=== PATIENT | male | born 1995 | race Caucasian/White ===

== ENCOUNTER 2022-01-28 08:51 | Emergency (ER) | payer OTHER ==
[~2022-01-28] VITALS: Ht 185.4 cm; Wt 95.5 kg
[2022-01-28 08:53] VITALS: BP 133/76
[2022-01-28] MEDS ORDERED: ACETAMINOPHEN 500 MG TAB PO ONE (10:00)
[2022-01-28] MEDS ORDERED: HYDR-4571 PO (10:35)
== END 2022-01-28 11:00 | disposition home or self-care (01) ==
LOC: M ED 08:51
DX: S82.832A Other fracture of upper and lower end of left fibula, initial encounter for closed fracture (principal); W01.0XXA Fall on same level from slipping, tripping and stumbling without subsequent striking against object, initial encounter; Y92.89 Other specified places as the place of occurrence of the external cause; Y93.02 Activity, running

== ENCOUNTER → 2022-01-29 | Outpatient (CLI) | payer OTHER ==
[~2022-01-29] MED LIST: HYDR-4571 PO; PERC5TAB12 PO
== END ==
LOC: M SOG 14:27
PROVIDERS: ATTEND Orthopaedic Surgery Hand Surgery
DX: S82.832A Other fracture of upper and lower end of left fibula, initial encounter for closed fracture (principal); X58.XXXA Exposure to other specified factors, initial encounter; Y92.89 Other specified places as the place of occurrence of the external cause; Y93.89 Activity, other specified; Y99.8 Other external cause status

== ENCOUNTER 2022-02-03 09:10 | Day surgery (SDC) | payer OTHER ==
[~2022-02-03] VITALS: Ht 185.4 cm; Wt 101.3 kg
[~2022-02-03 09:10] MED LIST changes: +LR 1,000 ML IV ONE; -PERC5TAB12 PO; +ceFAZolin SOD 2 GM in IV 1 EA IV ONE; +fentaNYL 100 MCG/2 ML INJECTION IV PRN
[2022-02-03] MEDS ORDERED: ROPIvacaine 0.5% 30ML INJECTION (J2795 PER 1MG) XX ONE (09:55)
[2022-02-03] MEDS ORDERED: LIDOCAINE 1% MDV 20ML VIAL XX ONE (09:55)
[2022-02-03] MEDS ORDERED: dexameTHASONE 10MG/1ML VIAL PRES.FREE (J1100 PER 1MG) XX ONE (09:55)
[2022-02-03] MEDS ORDERED: propofoL 200 MG/20 ML VIAL As Ordered ONE (10:53)
[2022-02-03] MEDS ORDERED: ROCURONIUM BROMIDE 50 MG/5 ML VIAL As Ordered ONE (10:53)
[2022-02-03] MEDS ORDERED: LIDOCAINE 2% 100MG/5ML SDV (FOR ANES.) As Ordered ONE (10:53)
[2022-02-03] MEDS ORDERED: fentaNYL 250 MCG/5 ML INJECTION As Ordered ONE (10:53)
[2022-02-03] MEDS ORDERED: MIDAZOLAM INJ 2MG/2ML VIAL (J2250 PER 1MG) As Ordered ONE (10:54)
[2022-02-03] MEDS ORDERED: BUPIVACAINE HCL 0.25% 30ML VIAL As Ordered ONE (10:54)
[2022-02-03] MEDS: MIDAZOLAM INJ 2MG/2ML VIAL (J2250 PER 1MG) IV PRN (11:21)
[2022-02-03] MEDS ORDERED: KETOROLAC 60MG 2ML VIAL As Ordered ONE ×2 (12:42→14:10)
[2022-02-03] MEDS ORDERED: ONDANSETRON 4MG/2ML VIAL As Ordered ONE (12:42)
[2022-02-03] MEDS ORDERED: dexameTHASONE 4 MG/ML 1ML VIAL (J1100 PER 1MG) As Ordered ONE (12:42)
[2022-02-03] MEDS ORDERED: oxyCODONE 5MG TAB PO PRN (13:20)
[2022-02-03] MEDS ORDERED: ONDANSETRON 4MG/2ML VIAL IV PRN (13:20)
[2022-02-03] MEDS ORDERED: HYDROMORPHONE HCL 0.5 MG/ 0.5 ML SYRINGE (J1170 PER 1) IV PRN (13:20)
[2022-02-03] MEDS ORDERED: LR 1,000 ML IV SCH (13:20)
[2022-02-03] MEDS ORDERED: fentaNYL 100 MCG/2 ML INJECTION IV PRN (13:20)
[2022-02-03 13:35] VITALS: BP 135/74
[2022-02-03] MEDS ORDERED: PERC5TAB12 PO (14:59)
== END 2022-02-03 14:05 | disposition home or self-care (01) ==
LOC: M SDC 09:10
PROVIDERS: ATTEND Orthopaedic Surgery Hand Surgery
DX: S82.832A Other fracture of upper and lower end of left fibula, initial encounter for closed fracture (principal); W01.0XXA Fall on same level from slipping, tripping and stumbling without subsequent striking against object, initial encounter; Y92.89 Other specified places as the place of occurrence of the external cause; Y93.02 Activity, running; Y99.8 Other external cause status; Z79.891 Long term (current) use of opiate analgesic
CPT/HCPCS: 27792; 64450; 76000; C1713; J0690; J1100; J1885; J2250; J2405; J3010

== ENCOUNTER → 2022-02-12 | Outpatient (CLI) | payer OTHER ==
[~2022-02-12] MED LIST changes: -LR 1,000 ML IV ONE; +PERC5TAB12 PO; -ceFAZolin SOD 2 GM in IV 1 EA IV ONE; -fentaNYL 100 MCG/2 ML INJECTION IV PRN
== END ==
LOC: M SOG 11:21
PROVIDERS: ATTEND Orthopaedic Surgery Hand Surgery
DX: S82.62XA Displaced fracture of lateral malleolus of left fibula, initial encounter for closed fracture (principal); X58.XXXA Exposure to other specified factors, initial encounter; Y92.89 Other specified places as the place of occurrence of the external cause

== ENCOUNTER → 2022-03-15 | Outpatient (CLI) | payer OTHER | LOC: M SOG 09:57 | PROVIDERS: ATTEND Physician Assistant | DX: S82.62XD Displaced fracture of lateral malleolus of left fibula, subsequent encounter for closed fracture with routine healing (principal) ==

== ENCOUNTER → 2022-03-29 | Outpatient (CLI) | payer OTHER | LOC: M SOG 09:11 | PROVIDERS: ATTEND Physician Assistant | DX: S82.62XD Displaced fracture of lateral malleolus of left fibula, subsequent encounter for closed fracture with routine healing (principal) ==

== ENCOUNTER → 2022-04-29 | Outpatient (CLI) | payer OTHER | LOC: M SOG 14:05 | PROVIDERS: ATTEND Orthopaedic Surgery Hand Surgery | DX: S82.62XD Displaced fracture of lateral malleolus of left fibula, subsequent encounter for closed fracture with routine healing (principal); Z53.9 Procedure and treatment not carried out, unspecified reason ==

== ENCOUNTER 2022-05-15 21:18 | Emergency (ER) | payer OTHER ==
[~2022-05-15] VITALS: Ht 185.4 cm; Wt 97.7 kg
[2022-05-15 21:19] VITALS: BP 124/80
== END 2022-05-16 00:21 | disposition home or self-care (01) ==
LOC: M ED 21:18
DX: S81.012A Laceration without foreign body, left knee, initial encounter (principal); W10.8XXA Fall (on) (from) other stairs and steps, initial encounter; Y92.018 Other place in single-family (private) house as the place of occurrence of the external cause; Y93.K1 Activity, walking an animal